=== PATIENT | male | born 1960 | race Caucasian/White ===

== ENCOUNTER 2019-03-11 12:03 | Emergency (ER) | payer MEDICAID ==
[~2019-03-11] VITALS: Ht 170.2 cm; Wt 76.7 kg
[2019-03-11 12:31] VITALS: BP 158/68
--- NOTE | 2019-03-11 12:31 | NUR ---
ED Nurse Note:pt. came with c/o lower back pain after he fell down stairs this morning, VSS, ambulating with steady gait, urine sent to labs, skin is intact
[2019-03-11 13:08] LABS: APPEARANCE,URINE CLEAR; BILIRUBIN, URINE NEGATIVE (NEGATIVE); COLOR,URINE PALE YELLOW; GLUCOSE, URINE (UA) NEGATIVE (NEGATIVE); KETONES,URINE NEGATIVE (NEGATIVE); LEUKOCYTE ESTERASE ,URINE NEGATIVE (NEGATIVE); NITRITE,URINE NEGATIVE (NEGATIVE); PH,URINE 5 (4.5-8.0); PROTEIN,URINE NEGATIVE (NEGATIVE); UROBILINOGEN,URINE NORMAL MG/DL (0.0-1.0)
--- NOTE | 2019-03-11 13:12 | NUR ---
ED Nurse Note: patient went down for xray.
--- NOTE | 2019-03-11 13:22 | NUR ---
ED Nurse Note: Patient back from xray.
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
[2019-03-11] MEDS ORDERED: CEPHALEXIN500 MG ORAL (13:34)
[2019-03-11] MEDS ORDERED: LIDODERM700 M1 TOPIC (13:34)
[2019-03-11 14:00] VITALS: BP 158/68
--- NOTE | 2019-03-11 14:00 | NUR ---
ER DISCHARGE NOTE: Patient is cleared to be discharged per ERMSaundra Spence, pt is aox4, on room air, with stable vital signs. pt was given dc and prescription instructions, pt was able to verbalize understanding, pt id band removed without complications. pt is able to ambulate with steady gait. pt took all belongings.
--- NOTE | 2019-03-12 13:03 | Diagnostic Imaging Report ---
Indication: Back pain Comparison: None Findings: 3 views of the lumbar spine were obtained. There is narrowing of intervertebral discs at multiple levels especially at L3-4 L4-5 and L5-S1. Vertebral endplate scalloping noted. There is a small fracture in the superior endplate of L4 without significant displacement. This is acuity indeterminate. Bones are osteopenic. There is no malalignment. There is some sclerosis of the L5-S1 facets. There is transitional anatomy at the lumbosacral junction with suggestion of a bilateral pseudoarthrosis. IMPRESSION: Age indeterminant mild fracture of the superior endplate L4. Correlate clinically. Osteoporosis Facet arthropathy L5-S1. 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
== END 2019-03-11 14:00 | disposition home or self-care (01) ==
LOC: EMR 12:20
DX: S30.0XXA Contusion of lower back and pelvis, initial encounter (principal); R35.0 Frequency of micturition; W10.9XXA Fall (on) (from) unspecified stairs and steps, initial encounter; Y92.9 Unspecified place or not applicable; I10 Essential (primary) hypertension
CPT/HCPCS: 72020; 81003; Z7502; 99283